=== PATIENT | female | born 1980 | race Caucasian/White ===

== ENCOUNTER 2018-02-12 08:52 | Emergency (ER) | payer MEDICARE, OTHER ==
[~2018-02-12] VITALS: Ht 165.1 cm; Wt 108.4 kg
[2018-02-12] MEDS ORDERED: ONDANSETRON ODT 4 MG PO ONE (09:30)
[2018-02-12] MEDS ORDERED: OXYcodone/APAP 5/325MG TABLET PO ONE (09:30)
[2018-02-12] MEDS ORDERED: OXYcodone/APAP 5/325MG TABLET ONE (09:42)
[2018-02-12] MEDS ORDERED: ONDANSETRON ODT 4 MG ONE (09:42)
[2018-02-12 10:07] VITALS: BP 166/104
--- NOTE | 2018-02-12 10:07 | NUR ---
Patient/Caregiver given discharge instructions and they have confirmed that they understand the instructions. Patient ambulatory with steady gait. Pt. has her RX.
== END 2018-02-12 10:09 | disposition home or self-care (01) ==
LOC: ED 09:55
DX: S30.0XXA Contusion of lower back and pelvis, initial encounter (principal); X58.XXXA Exposure to other specified factors, initial encounter; Y93.89 Activity, other specified; Y92.89 Other specified places as the place of occurrence of the external cause; Y99.8 Other external cause status
CPT/HCPCS: 72220; 99283; Q0162

== ENCOUNTER 2018-02-14 08:35 | Emergency (ER) | payer OTHER ==
[~2018-02-14] VITALS: Ht 165.1 cm; Wt 109.0 kg
[2018-02-14 11:07] LABS: BASOPHILS # (AUTO) 0.03 x10^3/uL (0-0.1); BASOPHILS % (AUTO) 0 % (0-1); EOSINOPHILS % (AUTO) 0 % (1-7); LYMPHOCYTES # (AUTO) 0.76 x10^3/uL (1-3.4); LYMPHOCYTES % (AUTO) 7 % (22-44); MD NO; MEAN CORPUSCULAR HEMOGLOBIN 30.5 pg (27.0-34.8); MEAN CORPUSCULAR HGB CONC 33.6 g/dL (32.4-35.8); MEAN CORPUSCULAR VOLUME 90.9 fL (80-100); MEAN PLATELET VOLUME 8.8 fL (7.4-10.4); MONOCYTES # (AUTO) 0.41 x10^3/uL (0.2-0.8); MONOCYTES % (AUTO) 4 % (2-9); NEUTROPHILS # (AUTO) 9.04 x10^3/uL (1.8-6.8); NEUTROPHILS % (AUTO) 88 % (42-75); PLATELET COUNT 287 x10^3/uL (130-400); RED BLOOD COUNT 4.21 x10^6/uL (3.82-5.3); RED CELL DISTRIBUTION WIDTH 13.3 % (9.6-15.2)
[2018-02-14 11:18] LABS: ALBUMIN 3.6 g/dL (3.4-5.0); ANION GAP 3 mmol/L (5-15); CALCIUM 8.7 mg/dL (8.5-10.1); CHLORIDE 105 mmol/L (98-107); CREATININE 0.69 mg/dL (0.55-1.02)
[2018-02-14 11:22] LABS: ALKALINE PHOSPHATASE 72 U/L (45-117); BILIRUBIN,TOTAL 0.2 mg/dL (0.2-1.0); TOTAL PROTEIN 7.9 g/dL (6.4-8.2)
[2018-02-14 11:23] LABS: ALANINE AMINOTRANSFERASE 15 U/L (12-78)
[2018-02-14 12:23] LABS: MICROSCOPIC AUTO
[2018-02-14 12:24] LABS: CULTURE INDICATED? YES
[2018-02-14] MEDS ORDERED: OXYcodone/APAP 5/325MG TABLET ONE (15:29)
[2018-02-14] MEDS ORDERED: OXYcodone/APAP 5/325MG TABLET PO ONE (15:30)
[2018-02-14] MEDS ORDERED: OMNIPAQUE 350 MG/ML, 100ML BOTTLE ONE (15:47)
[2018-02-14 15:58] VITALS: BP 158/81
--- NOTE | 2018-02-14 17:08 | NUR ---
Patient/Caregiver given discharge instructions and they have confirmed that they understand the instructions. Patient ambulatory with steady gait.
== END 2018-02-14 17:09 | disposition home or self-care (01) ==
LOC: ED 13:30
DX: A09 Infectious gastroenteritis and colitis, unspecified (principal); F41.1 Generalized anxiety disorder
CPT/HCPCS: 36415; 74021; 74177; 80053; 81001; 84703; 85025; 87086; 99284; Q9967

== ENCOUNTER 2019-07-29 19:40 | Emergency (ER) | payer OTHER ==
[~2019-07-29] VITALS: Ht 162.6 cm; Wt 94.0 kg
--- NOTE | 2019-07-29 20:07 | NUR ---
C/O LOW BACK PAIN - STARTED THIS AM. WOKE W/ THE PAIN. TOOK EXCEDRIN TODAY FOR MIGRAINE. NUMBNESS TO BILAT LEGS. WAS AT [facility] TODAY; RECEIVED TORADOL, RX FOR FLEXERIL. PT UNABLE TO SIT STILL ON GURNEY; PACING IN ROOM.
[2019-07-29] MEDS ORDERED: CIPRO (20:11)
[2019-07-29] MEDS ORDERED: ASPI-691 PO (20:11)
--- NOTE | 2019-07-29 20:17 | NUR ---
SMOOTH ALVARENGA BS FOR EXAM. PT NOW STATES PAIN STARTED WHILE SHE WAS WALKING AROUND HER APARTMENT TODAY.
[2019-07-29] MEDS ORDERED: HYDROmorphone 1 MG/ML, 1ML INJ IM STA (20:20)
[2019-07-29 20:43] LABS: BASOPHILS # (AUTO) 0.02 x10^3/uL (0-0.1); BASOPHILS % (AUTO) 0 % (0-1); EOSINOPHILS # (AUTO) 0.01 x10^3/uL (0-0.4); EOSINOPHILS % (AUTO) 0 % (1-7); LYMPHOCYTES # (AUTO) 1.05 x10^3/uL (1-3.4); LYMPHOCYTES % (AUTO) 11 % (22-44); MD NO; MEAN CORPUSCULAR HEMOGLOBIN 30.4 pg (27.0-34.8); MEAN CORPUSCULAR VOLUME 92.3 fL (80-100); MEAN PLATELET VOLUME 8.8 fL (7.4-10.4); MONOCYTES # (AUTO) 0.56 x10^3/uL (0.2-0.8); MONOCYTES % (AUTO) 6 % (2-9); NEUTROPHILS # (AUTO) 7.66 x10^3/uL (1.8-6.8); NEUTROPHILS % (AUTO) 82 % (42-75); PLATELET COUNT 280 x10^3/uL (130-400); RED BLOOD COUNT 4.23 x10^6/uL (3.82-5.3); RED CELL DISTRIBUTION WIDTH 12.5 % (9.6-15.2)
--- NOTE | 2019-07-29 20:53 | NUR ---
DILAUDID GIVEN PER EMAR. SIDE RAILS UP X2, CALL LIGHT W/IN REACH, EXTRA WARM BLANKET PROVIDED, LIGHTS DIMMED.
--- NOTE | 2019-07-29 20:55 | NUR ---
PT REPORTS IMPROVEMENT IN PAIN.
[2019-07-29 20:56] LABS: ALBUMIN 3.8 g/dL (3.4-5.0); ANION GAP 10 mmol/L (5-15); CALCIUM 8.8 mg/dL (8.5-10.1); CHLORIDE 105 mmol/L (98-107); CREATININE 0.79 mg/dL (0.55-1.02)
[2019-07-29 21:00] LABS: ALKALINE PHOSPHATASE 65 U/L (45-117); BILIRUBIN,TOTAL 0.4 mg/dL (0.2-1.0); TOTAL PROTEIN 7.9 g/dL (6.4-8.2)
[2019-07-29 21:04] LABS: ALANINE AMINOTRANSFERASE 19 U/L (12-78)
[2019-07-29 21:11] LABS: MICROSCOPIC NOT IND
--- NOTE | 2019-07-29 21:38 | NUR ---
RESTING QUIETLY ON GURNEY. REPORTS SIGNIFICANT IMPROVEMENT IN PAIN.
[2019-07-29 21:39] VITALS: BP 140/65
== END 2019-07-29 22:17 | disposition home or self-care (01) ==
LOC: ED 22:15
DX: M54.5 Low back pain (principal)
CPT/HCPCS: 36415; 80053; 81003; 84703; 85025; 96372; 99283; J1170

== ENCOUNTER 2020-07-29 16:23 | Emergency (ER) | payer OTHER ==
[~2020-07-29] VITALS: Ht 162.6 cm; Wt 99.0 kg
[~2020-07-29 16:23] MED LIST: ASPI-691 PO; CIPRO
--- NOTE | 2020-07-29 17:10 | NUR ---
pt in [place] at this time.
[2020-07-29 17:11] LABS: BASOPHILS % (AUTO) 0 % (0-1); EOSINOPHILS % (AUTO) 1 % (1-7); LYMPHOCYTES % (AUTO) 25 % (22-44); MEAN CORPUSCULAR HEMOGLOBIN 31.9 pg (27.0-34.8); MEAN CORPUSCULAR HGB CONC 34.4 g/dL (32.4-35.8); MEAN PLATELET VOLUME 8.4 fL (7.4-10.4); MONOCYTES % (AUTO) 14 % (2-9); NEUTROPHILS % (AUTO) 59 % (42-75); PLATELET COUNT 251 x10^3/uL (130-400); RED CELL DISTRIBUTION WIDTH 12.6 % (9.6-15.2)
[2020-07-29 17:25] LABS: ALANINE AMINOTRANSFERASE 29 U/L (12-78); ALBUMIN 3.3 g/dL (3.4-5.0); ANION GAP 4 mmol/L (5-15); CALCIUM 8.3 mg/dL (8.5-10.1); CHLORIDE 106 mmol/L (98-107); CREATININE 0.65 mg/dL (0.55-1.02)
[2020-07-29 17:30] LABS: ALKALINE PHOSPHATASE 52 U/L (45-117); BILIRUBIN,TOTAL 0.3 mg/dL (0.2-1.0); TOTAL PROTEIN 7.5 g/dL (6.4-8.2)
--- NOTE | 2020-07-29 18:11 | NUR ---
pt presents to ED with c/o n/v/d x 3 days, vag bleeding onset this am. pt states that she does not get periods because she is on depo shot. pt a&o, resps even and unlabored, nadn. connected to bp and spo2 monitors. pt refusing straight cath ua despite education from this RN, states she has already provided urine at urgent care. call light in reach. awaiting provider reassessment and dispo.
--- NOTE | 2020-07-29 18:45 | NUR ---
report given to ANNMARIE Devries at bedside. pt a&o, resps even and unlabored, nadn.
--- NOTE | 2020-07-29 18:51 | NUR ---
report recieved from Юлия ANGUIANO
[2020-07-29] MEDS ORDERED: POTASSIUM CHLORIDE 20 MEQ TAB.ER.PRT PO ONE (19:30)
[2020-07-29] MEDS ORDERED: POTASSIUM CHLORIDE 20 MEQ TAB.ER.PRT ONE (19:41)
[2020-07-29 19:54] VITALS: BP 146/88
[2020-07-29 20:09] LABS: MICROSCOPIC INDICATED
== END 2020-07-29 19:57 | disposition home or self-care (01) ==
LOC: ED 18:04
DX: N92.0 Excessive and frequent menstruation with regular cycle (principal); R19.7 Diarrhea, unspecified; R50.9 Fever, unspecified; N93.9 Abnormal uterine and vaginal bleeding, unspecified; Z87.891 Personal history of nicotine dependence
CPT/HCPCS: 36415; 76830; 80053; 81001; 84703; 85025; 99284